=== PATIENT | female | born 1950 | race Caucasian/White ===

== ENCOUNTER 2017-03-22 20:12 | Emergency (ER) | payer MEDICARE, OTHER, BC ==
--- NOTE | 2017-03-23 01:46 | ED ---
Lower Extremity - HPI Summary HPI Summary: Pt here w/ Rt knee pain while trying to bowel tonight. Stepped w/ her left and pushed off with her Rt when she felt a pop and had acute pain. Pain is worse w/ weight bearing - using crutches to ambulate here tonight. Tried ibuprofen 600mg earlier tonight w/o relief. Denies swelling, redness, numbness, tingling, weakness here . Reports she did tweak the knee back in the summer and had pain along Rt lateral thigh. Has this here again tonight since injury. Was told once in the past she has arthritis here but doesn't usually keep her from being active. - History of Current Complaint Chief Complaint: EDExtremityLower Stated Complaint: RT KNEE INJURY Time Seen by Provider: 03/22/17 23:40 Hx Obtained From: Patient Pain Intensity: 8 - Allergies/Home Medications Allergies/Adverse Reactions: Allergies Allergy/AdvReac Type Severity Reaction Status Date / Time Sulfa Drugs Allergy Rash Verified 03/22/17 20:27 PMH/Surg Hx/FS Hx/Imm Hx Previously Healthy: Yes Endocrine/Hematology History: Denies: Hx Anticoagulant Therapy, Hx Blood Disorders, Hx Diabetes, Hx Thyroid Disease, Autoimmune Disease Cardiovascular History: Denies: Hx Hypertension Respiratory History: Denies: Hx Asthma, Hx Chronic Obstructive Pulmonary Disease (COPD) GI History: Denies: Hx Ulcer Musculoskeletal History: Reports: Hx Arthritis - knee, Hx of Fracture(s) - Left foot in - Cancer History Hx Chemotherapy: No Hx Radiation Therapy: No - Surgical History Surgery Procedure, Year, and Place: csections. [facility] - 2001 Infectious Disease History: No Infectious Disease History: Denies: Hx Hepatitis, Hx Human Immunodeficiency Virus (HIV), Traveled Outside the in Last 30 Days - Family History Known Family History: Positive: None - Social History Occupation: Retired Lives: With Family Alcohol Use: Occasionally Hx Substance Use: No Substance Use Type: Reports: None Hx Tobacco Use: No Smoking Status (MU): Never Smoked Tobacco Have You Smoked in the Last Year: No Review of Systems Constitutional: Negative Positive: no symptoms reported Musculoskeletal: Other - see HPI Skin: Negative Neurological: Negative Positive: Anxious All Other Systems Reviewed And Are Negative: Yes Physical Exam Triage Information Reviewed: Yes Vital Signs On Initial Exam: Initial Vitals Temp Pulse Resp BP Pulse Ox 98.4 F 85 18 173/77 99 10/23/17 20:24 03/22/17 20:24 03/22/17 20:24 03/22/17 20:24 03/22/17 20:24 Vital Signs Reviewed: Yes Appearance: Positive: Well-Appearing, No Pain Distress - at rest - appears to have pain with transition from sitting to standing, Well-Nourished Skin: Positive: Warm, Dry - no erythema, no ecchymosis, no warmth to touch over affected area Head/Face: Positive: Normal Head/Face Inspection Eyes: Positive: EOMI ENT: Positive: Hearing grossly normal Respiratory/Lung Sounds: Positive: Breath Sounds Present Cardiovascular: Positive: Pulses are Symmetrical in both Upper and Lower Extremities, Other - superficial varicose veins over B/L LE's Musculoskeletal: Positive: Limited @ - Rt knee pain w/ full extension and past 90 degrees of flexion, Pain @ - rotation of tibia/fibula; all other special test are WNL; popliteal space is NTTP and w/o edema Neurological: Positive: Normal, Sensory/Motor Intact, Alert, Oriented to Person Place, Time, CN Intact II-III Psychiatric: Positive: Normal - Sherie Coma Scale Coma Scale Total: 15 Diagnostics - Vital Signs Vital Signs Temp Pulse Resp BP Pulse Ox 03/22/17 23:46 72 18 155/58 97 03/22/17 20:24 98.4 F 85 18 173/77 99 - Laboratory Diagnostic Studies Comment: Rt knee xr (WET READ); arthritis - no acute fx, dislocation (co-read by Dr. Hernandez) Lab Statement: Any lab studies that have been ordered have been reviewed, and results considered in the medical decision making process. Lower Extremity Course/Dx - Course Course Of Treatment: Arthritis flair up vs. ligament sprain vs. meniscal injury. Suspect the latter as pt's knee is not warm to touch nor edematous and she has pain w/ rotational movement (modified Carole). Conservative care with f/u w/ PCP. If pain persists, may benefit from ortho referral. - Diagnoses Provider Diagnoses: Right knee sprain Discharge - Discharge Plan Condition: Stable Disposition: HOME Patient Education Materials: Knee Sprain (ED), Knee Immobilizer (ED) Referrals: Alexis Delgado MD [Primary Care Provider] - Additional Instructions: Rest, ice, elevate and wear immobilizer when up and about and with sleeping to prevent painful movements at night You may remove immobilizer to stretch leg throughout the day in a controlled fashion (ie. while seated) Use cructhes to avoid weight bearing until cleared by PCP - call tomorrow schedule follow-up appointment later this week or early next You may try ibuprofen, acetaminophen or topical analgesics for relief of pain
[2017-03-23] MEDS ORDERED: Acetaminop/Codeine 30 MG TAB* 1 TAB (300 MG/30 MG) PO ONE (01:51)
[2017-03-23 02:10] VITALS: BP 165/59
--- NOTE | 2017-03-23 08:07 | RAD ---
HISTORY: Right knee injury COMPARISONS: November 09, 2013 VIEWS: 4, Frontal, lateral, axial, and oblique views of the right knee FINDINGS: BONE DENSITY: Normal. BONES: There is no displaced fracture. JOINTS: There is no arthropathy. There is no suprapatellar joint effusion or lipohemarthrosis. ALIGNMENT: There is no dislocation. SOFT TISSUES: Unremarkable. OTHER FINDINGS: None. IMPRESSION: NO ACUTE OSSEOUS INJURY. IF SYMPTOMS PERSIST, RECOMMEND REPEAT IMAGING.
== END 2017-03-23 02:10 | disposition home or self-care (01) ==
LOC: ED 20:12
DX: S83.91XA Sprain of unspecified site of right knee, initial encounter (principal); X50.9XXA Other and unspecified overexertion or strenuous movements or postures, initial encounter; Y93.54 Activity, bowling; Y92.9 Unspecified place or not applicable
CPT/HCPCS: 99282; A9270-GY